=== PATIENT | male | born 1995 | race Caucasian/White ===

== ENCOUNTER 2020-04-24 08:47 | Outpatient (REF) | payer OTHER, SELFPAY ==
--- NOTE | 2020-04-24 09:34 | ECG_ITS ---
Test Reason : HIGH RISK MED USE Blood Pressure : / mmHG Vent. Rate : 093 BPM Atrial Rate : 093 BPM P-R Int : 160 ms QRS Dur : 092 ms QT Int : 362 ms P-R-T Axes : 059 -02 035 degrees QTc Int : 450 ms Normal sinus rhythm Nonspecific T wave abnormality Abnormal ECG When compared with ECG of 17-JAN-2019 16:55, No significant change was found Referred By: Trino Parmar Electronically Signed By:JESSICA VASQUEZ MD
[2020-04-24 10:32] LABS: Imm Gran Abs Auto 0.01 X10*3/uL (0.00-0.03); Imm Gran Pct Auto 0.2 % (0.0-0.4); Mean Platelet Volume 10.6 fL (9.4-12.4); Red Cell Distribution Width 12.2 % (11.0-16.0)
[2020-04-24 10:33] LABS: Basophils Percent Auto 0.5 % (0-2); Eosinophils Absolute Auto 0.1 X10*3/uL (0.0-0.4); Eosinophils Percent Auto 2.1 % (0-4); Hematocrit 47.5 % (42-52); Hemoglobin 16.5 g/dl (14.0-18.0); Lymphocytes Absolute Auto 1.3 X10*3/uL (1.2-4.9); Lymphocytes Percent Auto 30.4 % (20-40); Mean Corpuscular HGB Conc 34.7 g/dl (31.0-36.0); Mean Corpuscular Volume 83.6 fL (80-98); Monocytes Absolute Auto 0.3 X10*3/uL (0.1-1.2); Monocytes Percent Auto 7.1 % (2-11); Neutrophils Absolute Auto 2.6 X10*3/uL (2.0-8.3); Neutrophils Percent Auto 59.7 % (45-73); Platelet Count 116 X10*3/uL (160-400); Red Blood Count 5.68 X10*6/uL (4.60-5.80); White Blood Count 4.4 X10*3/uL (4.8-10.8)
[2020-04-24 10:50] LABS: C Reactive Protein 0.63 mg/dL (< or = 0.50)
[2020-04-24 10:53] LABS: Troponin-I High Sensitivity < 3.5 ng/L (<3.5-35.0)
[2020-04-24 11:03] LABS: Estimated Average Glucose 237 mg/dL; Hemoglobin A1c % 9.9 %
[2020-04-24 11:07] LABS: Creatinine Urine 175.83 mg/dL
[2020-04-24 11:10] LABS: TSH reflex Free T4 4.35 mIU/mL (0.32-4.0)
[2020-04-25 08:12] LABS: Prolactin 7.8 ng/mL (2.0-18.0)
== END 2020-04-24 08:48 | disposition home or self-care (01) ==
LOC: HO.10HDL 08:47
PROVIDERS: Absent Provider Family Medicine; Visit Provider Psychiatry & Neurology Child & Adolescent Psychiatry
DX: F20.9 Schizophrenia, unspecified (principal); I10 Essential (primary) hypertension; E11.9 Type 2 diabetes mellitus without complications; E78.00 Pure hypercholesterolemia, unspecified; Z79.899 Other long term (current) drug therapy
CPT/HCPCS: 36415; 82043; 82550; 83036; 84146; 84439; 84443; 84484; 85025; 86140; 93005

== ENCOUNTER 2020-11-05 09:54 | Outpatient (REF) | payer OTHER, SELFPAY ==
--- NOTE | 2020-11-05 10:18 | ECG_ITS ---
Test Reason : HIGH RISK MEDS Blood Pressure : / mmHG Vent. Rate : 090 BPM Atrial Rate : 090 BPM P-R Int : 158 ms QRS Dur : 094 ms QT Int : 366 ms P-R-T Axes : 057 -04 041 degrees QTc Int : 447 ms Normal sinus rhythm Nonspecific T wave abnormality Abnormal ECG When compared with ECG of 24-APR-2020 10:52, No significant change was found Referred By: Trino Parmar Electronically Signed By:MARIA DOLORES GONZALEZ MD
[2020-11-05 11:22] LABS: Estimated Average Glucose 197 mg/dL; Hemoglobin A1c % 8.5 %
[2020-11-05 11:28] LABS: Alanine Aminotransferase 102 U/L (0-40); Albumin Level 4.8 g/dL (3.5-5.0); Alkaline Phosphatase 60 U/L (39-117); Anion Gap 16 (12-20); Aspartate Amino Transferase 27 U/L (5-37); Bilirubin Total 0.4 mg/dL (0.0-1.0); Blood Urea Nitrogen 18 mg/dL (9-16); C Reactive Protein 0.42 mg/dL (< or = 0.50); Calcium 9.5 mg/dL (8.4-10.2); Carbon Dioxide 25 mmol/L (22-29); Chloride 102 mmol/L (96-108); Cholesterol 208 mg/dL; Estimated Glomerular Filt Rate > 60; Glucose Random 210 mg/dL (60-115); HDL Cholesterol 34 mg/dL; Potassium 4.1 mmol/L (3.3-5.1); Sodium 139 mmol/L (135-145); Total Protein 7.1 g/dL (6.5-8.0); Triglycerides 478 mg/dL
[2020-11-05 11:31] LABS: Troponin-I High Sensitivity < 3.5 ng/L (<3.5-35.0)
[2020-11-05 11:57] LABS: Thyroid Stimulating Hormone 3.69 uIU/mL (0.32-4.0)
[2020-11-06 18:02] LABS: Prolactin 10.6 ng/mL (2.0-18.0)
== END 2020-11-05 09:55 | disposition home or self-care (01) ==
LOC: HO.LAB 09:54
PROVIDERS: Absent Provider Psychiatry & Neurology Child & Adolescent Psychiatry; PCP Family Medicine; Visit Provider Family Medicine
DX: I10 Essential (primary) hypertension (principal); E11.9 Type 2 diabetes mellitus without complications; R79.89 Other specified abnormal findings of blood chemistry; F20.9 Schizophrenia, unspecified; Z79.899 Other long term (current) drug therapy
CPT/HCPCS: 36415; 80053; 80061; 82043; 83036; 84146; 84443; 84484; 86140; 93005

== ENCOUNTER 2020-12-06 08:28 | Outpatient (REF) | payer OTHER, SELFPAY ==
[2020-12-06 10:04] LABS: Eosinophils Absolute Auto 0.1 X10*3/uL (0.0-0.4); Eosinophils Percent Auto 2.1 % (0-4); Imm Gran Abs Auto 0.02 X10*3/uL (0.00-0.03); Imm Gran Pct Auto 0.3 % (0.0-0.4); Mean Platelet Volume 10.8 fL (9.4-12.4); Red Cell Distribution Width 12.2 % (11.0-16.0)
[2020-12-06 10:06] LABS: Basophils Percent Auto 0.5 % (0-2); Hemoglobin 16.7 g/dl (14.0-18.0); Lymphocytes Absolute Auto 1.8 X10*3/uL (1.2-4.9); Lymphocytes Percent Auto 28.1 % (20-40); Mean Corpuscular HGB Conc 34.1 g/dl (31.0-36.0); Mean Corpuscular Hemoglobin 28.6 pg (27.0-33.0); Monocytes Absolute Auto 0.5 X10*3/uL (0.1-1.2); Monocytes Percent Auto 8.7 % (2-11); Neutrophils Absolute Auto 3.8 X10*3/uL (2.0-8.3); Neutrophils Percent Auto 60.3 % (45-73); Platelet Count 120 X10*3/uL (160-400); Red Blood Count 5.83 X10*6/uL (4.60-5.80); White Blood Count 6.2 X10*3/uL (4.8-10.8)
== END 2020-12-06 08:29 | disposition home or self-care (01) ==
LOC: HO.LABR 08:28
PROVIDERS: PCP Family Medicine; Visit Provider Psychiatry & Neurology Child & Adolescent Psychiatry
DX: F20.9 Schizophrenia, unspecified (principal)
CPT/HCPCS: 36415; 85025

== ENCOUNTER 2020-12-13 23:45 | Emergency (ER) | payer OTHER, SELFPAY ==
--- NOTE | ~2020-12-13 | XR_ITS ---
EXAMINATION: XR CHEST CLINICAL INFORMATION: Productive COMPARISON: 12/09/2018 TECHNIQUE: Frontal view of the chest was obtained. FINDINGS: Lungs appear markedly hypoinflated compared to the prior study. Some of this may be due to the angle of the spleen. Otherwise, no significant abnormality is seen. No infiltrates, lung masses or pleural effusions are seen XR/XR chest 1V IMPRESSION: Hypoinflated lungs. No acute intrathoracic disease.
[2020-12-13 23:52] VITALS: BP 116/72; PULSE 113; RESP 18; O2SAT 95; BMI 36.2
--- NOTE | 2020-12-13 23:58 | ED_ITS ---
HPI - General Adult General Chief complaint: Psychiatric Symptoms Stated complaint: CRISIS,NON MED COMPLIANT FOR SCHIZOPHRENIA Time Seen by Provider: 12/13/20 23:51 Source: EMS and RN notes reviewed Mode of arrival: EMS Limitations: altered mental status History of Present Illness HPI narrative: 25-year-old male with history of schizophrenia who was brought to the emergency department by ambulance for evaluation of noncompliance with medications, changes with behavior and aggression. At the time of my evaluation, the patient is not talking and is not answering questions, he makes a growling noises in response to questioning. According to the ED nurse, the patient is well known to the emergency department and has been here frequently for decompensation of his schizophrenia. The patient lives with his mother. His mother reported that the patient stop taking his medications on Thursday (4 days prior to evaluation). This evening, the patient had increased agitation and became more aggressive therefore his mother called an ambulance to have the patient brought to emergency department for evaluation. The mother reported that the patient has had a cough since Thursday with no other symptoms. Related Data Home Medications Medication Instructions Recorded Confirmed clozapine 50 mg PO BEDTIME 12/14/20 12/14/20 clozapine 200 mg PO BID 12/14/20 12/14/20 fluoxetine 20 mg PO QAM 12/14/20 12/14/20 lisinopril 20 mg PO DAILY 12/14/20 12/14/20 lorazepam 1 mg PO BID 12/14/20 12/14/20 metformin 1,000 mg PO BID 12/14/20 12/14/20 omeprazole 20 mg PO DAILY 12/14/20 12/14/20 oxcarbazepine [Trileptal] 600 mg PO BID 12/14/20 12/14/20 trazodone 100 mg PO BEDTIME 12/14/20 12/14/20 Allergies Allergy/AdvReac Type Severity Reaction Status Date / Time No Known Allergies Allergy Unverified 03/08/20 16:14 [No Known Allergies*] Review of Systems 2 Review of Systems: Yes Unobtainable due to mental status [facility] Past [facility] Narrative: Past will history: Schizophrenia. Social history: Unobtainable at this time secondary to altered mental status Social History Social History Advance Directives: No Advance Directives Information Provided: No Physical Exam Vital Signs: Vital Signs: Last Vital Signs Pulse 113 H 12/13/20 23:52 Resp 18 12/13/20 23:52 BP 116/72 12/13/20 23:52 Pulse Ox 95 12/13/20 23:52 Body Mass Index 36.2 Const: Other: Awake, alert, male, cooperative but nonverbal, patient growls in response to questions HENMT: Head: Yes normal to inspection, Yes normocephalic and Yes atraumatic Ears: external ears normal General nose exam: Normal external nose present Face and sinus: Yes normal facial exam Mouth: Normal oral and palatal mucosa present Throat: Yes posterior oropharynx normal Eyes: Periorbital: periorbital findings normal Eyelids: Yes eyelids normal Conjunctivae: conjunctivae normal Sclerae: sclerae normal Corneas: corneas normal Direct Ophthalmoscopy: normal light reflex Neck: Neck: Yes full ROM, Yes no lymphadenopathy, Yes trachea midline and Yes supple Chest: Chest palpation & inspection: normal inspection of the chest and normal palpation of entire chest wall Resp: Effort & Inspection: normal respiratory effort and able to speak in complete sentences Auscultation: clear to auscultation bilaterally Cardio: Rate: regular rate Rhythm: regular rhythm Heart sounds: S1 normal heart sound present, S2 normal heart sound present and no murmurs GI: Inspection: Yes normal to inspection Palpation (GI): Soft to palpation, nontender, no guarding, not rigid and No hepatosplenomegaly present : General: Yes no CVA tenderness Back/Spine/Pelvis: Back: no CVA tenderness Cervical Spine: normal cervical lordosis Thoracic/Lumbar Spine: thoracic and lumbar spine normal to inspection Skin: Lesions: no lesions Rashes: no rashes Wounds: no wounds Neuro: Other: Patient is awake, alert, cooperative, moves all extremities symmetrically, neuro exam appears to be nonfocal. Extrem: General: Yes normal to inspection and Yes full ROM Psych: Other: Patient is not responding verbally to questioning, he is cooperating with security and nursing staff. Course Course Course Narrative: 25-year-old male history of schizophrenia who has been noncompliant with his medications for approximately 4 days, as reported that he was aggressive and had a change in mental status this evening therefore the patient was transported to the emergency department. He also reported that the patient had a cough. 0504: The patient did receive Haldol 10 mg orally and Benadryl 50 mg orally for agitation. The patient has been sleeping and given his initial agitation, blood work will be done in the morning. [facility] an evaluation is still pending therefore the patient will be placed in physician observation. 0504 Physician observation started at 0504. Patient placed in physician observation because the patient needed more time for medication to work and to see and be evaluated for the need for psych admission. At the time observation was started the patient's vitals were stable, patient is calm and sleeping, examination is unchanged from baseline. Medical Decision Making Lab Data Labs: Lab Results 12/14/20 12/14/20 Range/Units 00:07 01:05 POC Glucose 313 H (60-115) mg/dL COVID-19 ([facility]) Negative (Negative) COVID-19 Clin Com See Note Discharge Plan Discharge Prescriptions: No Action lisinopril 20 mg tablet 20 mg PO DAILY RF: 0 trazodone 100 mg tablet 100 mg PO BEDTIME RF: 0 metformin 1,000 mg tablet 1,000 mg PO BID RF: 0 omeprazole 20 mg capsule,delayed release(DR/EC) 20 mg PO DAILY RF: 0 oxcarbazepine [Trileptal] 600 mg tablet 600 mg PO BID RF: 0 lorazepam 1 mg tablet 1 mg PO BID RF: 0 fluoxetine 20 mg capsule 20 mg PO QAM RF: 0 clozapine 50 mg tablet 50 mg PO BEDTIME RF: 0 clozapine 200 mg tablet 200 mg PO BID RF: 0
[2020-12-14 00:29] LABS: COVID-19 Test Negative (Negative)
[2020-12-14] MEDS: diphenhydrAMINE HCL 25 MG TABLET 50 MG PO (01:15)
[2020-12-14] MEDS: HaloperidoL 5 MG TABLET 10 MG PO (01:15)
[2020-12-14 01:20] LABS: Glucose, Whole Blood 313 mg/dL (60-115)
--- NOTE | 2020-12-14 05:45 | PC.NURSE ---
Patient slept through the night, + effect from Haldol 5 mg tablet and Benadryl 50 mg, patient presents with intermittent productive cough, provider made aware, Chest X-ray negative, labs order pending, will continue to monitor.
[2020-12-14 06:24] VITALS: RESP 20
[2020-12-14 06:35] VITALS: BP 115/73; PULSE 84; RESP 20; TEMP 36.8; O2SAT 93
[2020-12-14] MEDS: Benzonatate 100 MG CAPSULE 200 MG PO ×2 (06:43→21:46)
[2020-12-14 07:38] LABS: Glucose, Whole Blood 265 mg/dL (60-115)
[2020-12-14 08:07] VITALS: BP 116/70; PULSE 115; RESP 19; TEMP 37.5
--- NOTE | 2020-12-14 08:34 | ECG_ITS ---
Test Reason : MEDICAL CLEARANCE Blood Pressure : / mmHG Vent. Rate : 103 BPM Atrial Rate : 103 BPM P-R Int : 154 ms QRS Dur : 092 ms QT Int : 354 ms P-R-T Axes : 051 -02 043 degrees QTc Int : 463 ms Sinus tachycardia Nonspecific T wave abnormality Abnormal ECG When compared with ECG of 05-NOV-2020 10:23, No significant change was found Referred By: Roopa Pratt Electronically Signed By:Raul Goyal
[2020-12-14 08:46] LABS: Basophils Percent Auto 0.2 % (0-2); Monocytes Absolute Auto 0.7 X10*3/uL (0.1-1.2)
[2020-12-14 08:48] LABS: Eosinophils Absolute Auto 0.1 X10*3/uL (0.0-0.4); Hematocrit 41.2 % (42-52); Imm Gran Abs Auto 0.01 X10*3/uL (0.00-0.03); Imm Gran Pct Auto 0.2 % (0.0-0.4); Lymphocytes Absolute Auto 1.2 X10*3/uL (1.2-4.9); Lymphocytes Percent Auto 20.7 % (20-40); Mean Corpuscular Volume 85.3 fL (80-98); Mean Platelet Volume 10.6 fL (9.4-12.4); Monocytes Percent Auto 12.4 % (2-11); Neutrophils Absolute Auto 3.8 X10*3/uL (2.0-8.3); Neutrophils Percent Auto 65.5 % (45-73); Platelet Count 102 X10*3/uL (160-400); Red Blood Count 4.83 X10*6/uL (4.60-5.80); Red Cell Distribution Width 12.4 % (11.0-16.0); White Blood Count 5.7 X10*3/uL (4.8-10.8)
[2020-12-14 08:50] LABS: MANUAL DIFF FLAG NO
[2020-12-14 09:04] LABS: Amphetamine Screen Urine Not Detected (Not Detect); Barbiturates, Urine Not Detected (Not Detect); Benzodiazepines Screen Urine Not Detected (Not Detect); Cannabinoid Screen Urine Not Detected (Not Detect); Cocaine Screen Urine Not Detected (Not Detect); Opiate Screen Urine Not Detected (Not Detect); Phencyclidine Screen Urine Not Detected (Not Detect)
[2020-12-14 09:12] LABS: Ethanol < 10 mg/dL
[2020-12-14 09:14] LABS: Acetaminophen LAB < 1 mcg/mL (<30); Salicylate < 5.0 mg/dL (15-30)
[2020-12-14 09:16] LABS: Alanine Aminotransferase 81 U/L (0-40); Albumin Level 4.2 g/dL (3.5-5.0); Alkaline Phosphatase 51 U/L (39-117); Anion Gap 14 (12-20); Aspartate Amino Transferase 22 U/L (5-37); Bilirubin Total 0.8 mg/dL (0.0-1.0); Blood Urea Nitrogen 15 mg/dL (9-16); Calcium 9.4 mg/dL (8.4-10.2); Carbon Dioxide 28 mmol/L (22-29); Chloride 99 mmol/L (96-108); Creatinine Clr Calc Pharmacy 136.7; Estimated Glomerular Filt Rate > 60; Glucose Random 324 mg/dL (60-115); Potassium 4.1 mmol/L (3.3-5.1); Sodium 137 mmol/L (135-145); Total Protein 6.4 g/dL (6.5-8.0)
[2020-12-14 09:44] VITALS: BP 116/70; PULSE 115
[2020-12-14] MEDS: lisinopriL 20 MG TABLET PO (09:44)
[2020-12-14] MEDS: OXcarbazepine 300 MG TABLET 600 MG PO (09:44)
[2020-12-14] MEDS: FLUoxetine HCl 20 MG CAPSULE PO (09:44)
[2020-12-14] MEDS: Omeprazole 20 MG CAPSULE.DR PO (09:44)
[2020-12-14] MEDS: LORazepam 1 MG TABLET PO ×2 (09:44→21:46)
[2020-12-14] MEDS: metFORMIN HCl 1,000 MG TABLET 1000 MG PO ×2 (09:45→21:46)
--- NOTE | 2020-12-14 10:03 | PC.NURSE ---
ELECTRONIC SMART FORM SENT TO [facility]
--- NOTE | 2020-12-14 11:36 | PC.NURSE ---
pharmacy called for clozapine
[2020-12-14] MEDS: cloZAPine 100 MG TABLET 200 MG PO (12:11)
--- NOTE | 2020-12-14 12:31 | PC.NURSE ---
patient appears to be resting upon rounds awoke client to give clozaril. patient appears in no distress,
--- NOTE | 2020-12-14 16:43 | MHC.CARE ---
CARE Team spoke with Pts mother who reported Pt was off his medication roughly 5 days - Pts mother restarted all his medication on Thursday. Since Thursday Pt has been very groggy and has not been feeling well. Pt fell last evening and was incontinent resulting in Pts mother calling EMS and him being transported here. Per his mother Pt reported to a friend that he was feeling better being the reason he stopped his medications. Pt was supposed to be moving to [place] on Thursday, to move in with his sister and the mother suspects the stresors may have resulted in Pt stopping his medications. Pt has one prior IPLOC in 2019 on M5 for 6 weeks, at that time Pt was diagnosed wtih schizophrenia. Since discharge Pt has been stable and supported through the [facility] and providers through [facility], Dr. Lee. CARE Team reviewed case with Dr. Cantor who recommended decreasing some of Pts medication with the goal to appropriately titrate Pt back to the therapeutic dose without significant sedation. Plan for CARE Team to follow up with Pt tomorrow and coordinate with Pts mother regarding discharge plan.
[2020-12-14 18:48] LABS: Glucose, Whole Blood 218 mg/dL (60-115)
--- NOTE | 2020-12-14 20:15 | PC.NURSE ---
Pt sleeping at this time. No apparent distress. Respirations even/unlabored. Will continue to monitor. Per RN to RN report from [place], plan for patient is for re-evaluation in the morning with likely plan to discharge with Clozoril dose titration.
[2020-12-14] MEDS: OXcarbazepine 300 MG TABLET PO (21:46)
[2020-12-14] MEDS: traZODone HCL 100 MG TABLET PO (21:46)
[2020-12-15 02:48] VITALS: BP 108/61; PULSE 104; RESP 18; TEMP 37.5; O2SAT 90
--- NOTE | 2020-12-15 04:21 | PC.NURSE ---
Patient is calm/cooperative, but expresses trouble sleeping due to persistant cough. Pt able to make needs known. Requested and given diet neal leisa and ice water. Pt watching TV at this time. Will continue to monitor.
[2020-12-15 06:59] LABS: Glucose, Whole Blood 209 mg/dL (60-115)
[2020-12-15 07:49] VITALS: BP 124/76; PULSE 100; RESP 17; TEMP 37; O2SAT 92
--- NOTE | 2020-12-15 08:17 | MHC.CARE ---
0745: CARE Team meets with pt as a follow up to yesterday's re assessment. Pt is alert and oriented x4, still appears slightly drowsy but is up and walking and able to answer questions. Pt reports no thoughts of harm to self or others, no A/V hallucinations. Pt does not appear delusional, no disorganization to his speech. Pt's affect is flat. He is not demonstrating any aggression or the growling behavior reported yesterday. Pt reports he is ready for discharge, and will follow up with his out patient providers. The plan is for pt to be discharged. Pt will follow th medication plan outlined by Dr. Cantor. This has been discussed and agreed upon by pt's Nurse HARMONY Nichols and ED Provider KEN Carcamo.
[2020-12-15 09:45] VITALS: BP 124/76; PULSE 100
[2020-12-15] MEDS: Omeprazole 20 MG CAPSULE.DR PO (09:45)
[2020-12-15] MEDS: lisinopriL 20 MG TABLET PO (09:45)
[2020-12-15] MEDS: metFORMIN HCl 1,000 MG TABLET 1000 MG PO (09:45)
[2020-12-15] MEDS: FLUoxetine HCl 20 MG CAPSULE PO (09:46)
[2020-12-15] MEDS: LORazepam 1 MG TABLET PO (09:46)
== END 2020-12-15 09:56 | disposition home or self-care (01) ==
PROVIDERS: Emergency Provider Emergency Medicine Emergency Medical Services; PCP Family Medicine
DX: F20.9 Schizophrenia, unspecified (principal); Z91.14 Patient's other noncompliance with medication regimen; Z20.822 Contact with and (suspected) exposure to COVID-19
CPT/HCPCS: 36415; 71045; 80053; 80143; 80179; 80307; 82077; 82947; 85025; 87635; 93005; 99284; 99285; Q0163

== ENCOUNTER 2021-01-07 12:00 | Outpatient (REF) | payer OTHER, SELFPAY ==
[2021-01-07 13:16] LABS: Mean Corpuscular Volume 86.3 fL (80-98); Monocytes Percent Auto 6.6 % (2-11); PLT CLUMP 1; Red Cell Distribution Width 13.2 % (11.0-16.0); SCAN SMEAR FLAG 1
[2021-01-07 13:18] LABS: Basophils Percent Auto 0.4 % (0-2); Eosinophils Absolute Auto 0.1 X10*3/uL (0.0-0.4); Eosinophils Percent Auto 2.3 % (0-4); Hematocrit 47.9 % (42-52); Hemoglobin 16.1 g/dl (14.0-18.0); Imm Gran Abs Auto 0.02 X10*3/uL (0.00-0.03); Imm Gran Pct Auto 0.4 % (0.0-0.4); Lymphocytes Absolute Auto 1.2 X10*3/uL (1.2-4.9); Lymphocytes Percent Auto 25.5 % (20-40); Mean Corpuscular HGB Conc 33.6 g/dl (31.0-36.0); Mean Platelet Volume 10.4 fL (9.4-12.4); Monocytes Absolute Auto 0.3 X10*3/uL (0.1-1.2); Neutrophils Absolute Auto 3.1 X10*3/uL (2.0-8.3); Neutrophils Percent Auto 64.8 % (45-73); Platelet Count 121 X10*3/uL (160-400); Red Blood Count 5.55 X10*6/uL (4.60-5.80); White Blood Count 4.7 X10*3/uL (4.8-10.8)
== END 2021-01-07 12:01 | disposition home or self-care (01) ==
LOC: HO.LABR 12:00
PROVIDERS: PCP Family Medicine; Visit Provider Psychiatry & Neurology Child & Adolescent Psychiatry
DX: F20.9 Schizophrenia, unspecified (principal)
CPT/HCPCS: 36415; 85025